=== PATIENT | female | born 1955 | race Caucasian/White ===

== ENCOUNTER 2018-01-24 07:16 | Emergency (ER) | payer MEDICARE, OTHER, SELFPAY ==
--- NOTE | 2018-01-24 07:21 | NURSING ---
NO OLD EKGS
--- NOTE | 2018-01-24 07:23 | NURSING ---
[id number] CODE BLUE CALLED [id number] HERE [id number] DR CLARKE PAGED [phone] DR CLARKE CALLED BACK
--- NOTE | 2018-01-24 07:45 | ED.RN ---
SEE CODE CHARTING, FAMILY IN WAITING ROOM, CLINIQUE COUNTER MANAGER NOTIFIED.
--- NOTE | 2018-01-24 07:56 | ED.VISSUMM ---
- ER Visit Summary Date of Service: 01/24/18 Chief Complaint: Unresponsive History of Present Illness: The patient is a [address] Connolly. She is visiting from out of town. Family reports that she has a history of coronary artery disease and type 1 diabetes. She was sitting in a car talking with the family member when she slumped over unresponsive. When basic squad arrived they placed an AED and she was defibrillated. When the paramedics arrived she was in PEA. CPR was started and the patient was intubated. She received 2 rounds of epinephrine on the way to the hospital. Physical Examination: Vitals: Agonal respirations and a weak femoral pulse. General: Well-nourished and well-developed. Head: Normocephalic atraumatic. Cardiovascular: Tachycardic. No murmurs. Respiratory: Agonal respirations. Abdominal: Soft, nondistended. Extremities: No edema. Skin: Normal color, no rash. Emergency Department Course and Treatment: Initially the patient had a weak femoral pulse. Her heart rate was in the low 100s. She bradycardia down into the 50s and lost her pulse. CPR was resumed and she was given 2 more rounds of epinephrine and sodium bicarb. She did not resume a palpable pulse. Bedside ultrasound was performed and shows no cardiac activity. Treatment Plan: I discussed the patient's current status with the family and they did not want any further CPR performed. Patient was discussed with Dr. 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 We are in the process of trying to get a hold of her doctor from out [place]. [place] [facility] [place]ression: 1. Ventricular fibrillation arrest. 2. PEA. 3. Asystole. 4. CPR, unsuccessful. 5. History of coronary artery disease. 6. History of insulin-dependent diabetes mellitus. 7. Critical care time 30 minutes. This note was generated with [employer] dictation software. It may contain incorrect words, spelling, and punctuation that were not noted in review of the chart prior to signing ED Disposition - Plan for ED Patient: Chief Complaint: CPR
--- NOTE | 2018-01-24 08:00 | ED.DCSUM_ITS ---
- ER Visit Summary Date of Service: 01/24/18 Chief Complaint: Unresponsive History of Present Illness: The patient is a [address] Connolly. She is visiting from out of town. Family reports that she has a history of coronary artery disease and type 1 diabetes. She was sitting in a car talking with the family member when she slumped over unresponsive. When basic squad arrived they placed an AED and she was defibrillated. When the paramedics arrived she was in PEA. CPR was started and the patient was intubated. She received 2 rounds of epinephrine on the way to the hospital. Physical Examination: Vitals: Agonal respirations and a weak femoral pulse. General: Well-nourished and well-developed. Head: Normocephalic atraumatic. Cardiovascular: Tachycardic. No murmurs. Respiratory: Agonal respirations. Abdominal: Soft, nondistended. Extremities: No edema. Skin: Normal color, no rash. Emergency Department Course and Treatment: Initially the patient had a weak femoral pulse. Her heart rate was in the low 100s. She bradycardia down into the 50s and lost her pulse. CPR was resumed and she was given 2 more rounds of epinephrine and sodium bicarb. She did not resume a palpable pulse. Bedside ultrasound was performed and shows no cardiac activity. Treatment Plan: I discussed the patient's current status with the family and they did not want any further CPR performed. Patient was discussed with Dr. 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 We are in the process of trying to get a hold of her doctor from out of town. Disposition[place] [facility] [place] Impression: 1. Ventricular fibrillation arrest. 2. PEA. 3. Asystole. 4. CPR, unsuccessful. 5. History of coronary artery disease. 6. History of insulin-dependent diabetes mellitus. 7. Critical care time 30 minutes. This note was generated with [employer] dictation software. It may contain incorrect words, spelling, and punctuation that were not noted in review of the chart prior to signing ED Disposition - Plan for ED Patient: Chief Complaint: CPR
[2018-01-24 09:37] VITALS: BMI 21.2
[2018-01-26 15:25] LABS: Bedside Glucose 385 mg/dL (70-110)
== END 2018-01-24 09:41 ==
PROVIDERS: Emergency Provider Emergency Medicine
DX: I49.01 Ventricular fibrillation (principal); I46.9 Cardiac arrest, cause unspecified; I25.10 Atherosclerotic heart disease of native coronary artery without angina pectoris; E11.9 Type 2 diabetes mellitus without complications; Z79.4 Long term (current) use of insulin; F17.200 Nicotine dependence, unspecified, uncomplicated
CPT/HCPCS: 82962; 92950; 99281; J7030; A4216